=== PATIENT | male | born 1955 | race African-American/Black ===

== ENCOUNTER 2020-06-13 11:26 | Inpatient (IN) | payer MEDICARE, MEDICAID ==
[~2020-06-13] VITALS: Ht 185.4 cm; Wt 103.5 kg
[2020-06-13] MEDS ORDERED: ONDANSETRON HCL 4 MG/2 ML VIAL IV ONE (11:45)
[2020-06-13] MEDS ORDERED: HYDROmorphone HCL 2 MG/ML VL IV ONE (11:45)
[2020-06-13 11:53] LABS: Basophils # (auto) 0.1 10 ^3/uL (0-0.2); Basophils % (auto) 0.8 % (0.0-2.0); Eosinophils # (auto) 0.3 10 ^3/uL (0-0.8); Eosinophils % (auto) 2.7 % (0.0-7.0); Hematocrit 29.7 % (41.0-53.0); Hemoglobin 9.9 g/dL (13.5-17.5); Lymphocytes # (auto) 2.7 10 ^3/uL (0.4-5.4); Lymphocytes % (auto) 26.9 % (10.0-50.0); Mean Corpuscular Hgb Conc. 33.4 g/dL (32.0-36.0); Mean Corpuscular Volume 92.8 fL (80.0-100.0); Monocytes # (auto) 0.7 10 ^3/uL (0-1.3); Monocytes % (auto) 6.9 % (0.0-12.0); Neutrophils # (auto) 6.3 10 ^3/uL (1.6-8.6); Neutrophils % (auto) 62.7 % (37.0-80.0); Nucleated Red Blood Cells % 0.1 %; Platelet Count (auto) 250 10^3/uL (140-450); Red Cell Distribution Width 17.2 % (11.8-14.3)
[2020-06-13 12:14] LABS: Chloride 98 mmol/L (98-107); Sodium 136 mmol/L (136-145)
[2020-06-13 12:24] LABS: Alanine Aminotransferase 8 U/L (16-61); Albumin 2.4 g/dL (3.4-5.0); Alkaline Phosphatase 326 U/L (45-117); Anion Gap 15 (5-15); Aspartate Aminotransferase 8 U/L (15-37); BUN/Creatinine Ratio 2.8; Bilirubin, Total 0.6 mg/dL (0.2-1.0); Blood Urea Nitrogen 39 mg/dL (7-18); Carbon Dioxide 23 mmol/L (21-32); GFR African American 5 mL/min; GFR Non-African American 4 mL/min; Glucose 87 mg/dL (74-106); Magnesium 1.7 mg/dL (1.6-2.6); Total Protein 7.4 g/dL (6.4-8.2)
[2020-06-13 12:58] LABS: Potassium 2.5 mmol/L (3.5-5.1)
[2020-06-13] MEDS ORDERED: POTASSIUM CHL 20MEQ/100ML 100 ML IV ONE (13:45)
[2020-06-13] MEDS ORDERED: hydrALAZINE HCL 20 MG/ML VL IV PRN (14:00)
[2020-06-13] MEDS ORDERED: SODIUM CHLORIDE 0.9% 1,000 ML IV SCH (14:00)
[2020-06-13] MEDS ORDERED: DOCUSATE CALCIUM 240 MG CAP PO PRN (14:00)
[2020-06-13] MEDS ORDERED: ACETAMINOPHEN 500 MG TAB PO PRN (14:00)
[2020-06-13] MEDS ORDERED: POTASSIUM CHL 20 Meq TABLET PO ONE (15:45)
[2020-06-13] MEDS ORDERED: MAGNESIUM SULFATE 1GM/100ML 100 ML IV ONE (15:45)
[2020-06-13] MEDS: HYDROmorphone HCL 2 MG/ML VL IV PRN ×2 (16:10→20:10)
[2020-06-13] MEDS ORDERED: APIX5TAB PO (16:46)
[2020-06-13] MEDS ORDERED: OMEP10CA58 PO (16:46)
[2020-06-13] MEDS ORDERED: CALC0.25 PO (16:46)
[2020-06-13] MEDS ORDERED: MONT10TA34 PO (16:46)
[2020-06-13] MEDS ORDERED: ATOR40TA52 PO (16:46)
[2020-06-13] MEDS ORDERED: LEVO75TA6 PO (16:46)
[2020-06-13] MEDS ORDERED: AMIO200T4 PO (16:46)
[2020-06-13] MEDS ORDERED: OXYC-902 PO (16:46)
[2020-06-13] MEDS ORDERED: CLOP75TA41 PO (16:46)
[2020-06-13] MEDS ORDERED: CINA30TA3 PO (16:46)
[2020-06-13] MEDS: KETOROLAC TROMETH 30 MG/ML 1ML VIAL IV PRN (20:08)
[2020-06-13] MEDS ORDERED: LORazepam 2MG/ML-1ML VIAL IV PRN (22:00)
[2020-06-13 23:42] VITALS: BP 112/68
[2020-06-13 23:43] VITALS: BP 91/60
[2020-06-14] MEDS: HYDROmorphone HCL 2 MG/ML VL IV PRN ×9 (00:19→20:56)
[2020-06-14 05:40] VITALS: BP 94/61
[2020-06-14 05:53] LABS: Basophils # (auto) 0.1 10 ^3/uL (0-0.2); Basophils % (auto) 1.7 % (0.0-2.0); Eosinophils # (auto) 0.3 10 ^3/uL (0-0.8); Eosinophils % (auto) 5.2 % (0.0-7.0); Hematocrit 30.4 % (41.0-53.0); Hemoglobin 10.3 g/dL (13.5-17.5); Lymphocytes % (auto) 30.2 % (10.0-50.0); Mean Corpuscular Hemoglobin 31.4 pg (28.0-32.0); Mean Corpuscular Hgb Conc. 33.8 g/dL (32.0-36.0); Monocytes # (auto) 0.5 10 ^3/uL (0-1.3); Monocytes % (auto) 7.7 % (0.0-12.0); Neutrophils # (auto) 3.6 10 ^3/uL (1.6-8.6); Neutrophils % (auto) 55.2 % (37.0-80.0); Nucleated Red Blood Cells % 0.1 %; Platelet Count (auto) 260 10^3/uL (140-450); Red Blood Cells 3.27 10^6/uL (4.5-5.90); Red Cell Distribution Width 17.8 % (11.8-14.3); White Blood Cell 6.5 10^3/uL (4.4-10.8)
[2020-06-14 06:01] LABS: Potassium 3.6 mmol/L (3.5-5.1)
[2020-06-14 06:13] LABS: Albumin 2.4 g/dL (3.4-5.0); Bilirubin, Total 0.6 mg/dL (0.2-1.0); Calcium 7.7 mg/dL (8.5-10.1); Total Protein 7.2 g/dL (6.4-8.2)
[2020-06-14 08:46] VITALS: BP 97/64
[2020-06-14] MEDS: FAMOTIDINE 20 MG TAB PO SCH (09:38)
[2020-06-14] MEDS: ONDANSETRON HCL 4 MG/2 ML VIAL IV PRN ×2 (09:39→17:34)
[2020-06-14] MEDS ORDERED: ENOXAPARIN SOD 30 MG/0.3 ML SYRINGE SC SCH (10:00)
[2020-06-14] MEDS ORDERED: CLOPIDOGREL BISULFATE 75 MG TAB PO ONE (11:00)
[2020-06-14] MEDS: KETOROLAC TROMETH 30 MG/ML 1ML VIAL IV PRN (11:57)
[2020-06-14] MEDS ORDERED: LORazepam 2MG/ML-1ML VIAL IV PRN (12:00)
[2020-06-14 12:53] VITALS: BP 106/71
[2020-06-14 16:37] VITALS: BP 100/74
[2020-06-14 22:00] VITALS: BP 97/64
[2020-06-14] MEDS: PERITONEAL DIALYSIS 2.5% SOLN 2,000 ML IP SCH (22:00)
[2020-06-14] MEDS: ATORVASTATIN 20 MG TAB PO SCH (23:02)
[2020-06-15] MEDS: HYDROmorphone HCL 2 MG/ML VL IV PRN ×5 (00:08→22:21)
[2020-06-15] MEDS: PERITONEAL DIALYSIS 2.5% SOLN 2,000 ML IP SCH ×6 (02:05→22:21)
[2020-06-15 05:00] VITALS: BP 93/50
[2020-06-15 05:42] LABS: Basophils # (auto) 0.1 10 ^3/uL (0-0.2); Basophils % (auto) 2.4 % (0.0-2.0); Eosinophils # (auto) 0.5 10 ^3/uL (0-0.8); Eosinophils % (auto) 8.3 % (0.0-7.0); Hemoglobin 9.6 g/dL (13.5-17.5); Lymphocytes # (auto) 1.5 10 ^3/uL (0.4-5.4); Lymphocytes % (auto) 26.3 % (10.0-50.0); Mean Corpuscular Hemoglobin 31.5 pg (28.0-32.0); Mean Corpuscular Hgb Conc. 33.3 g/dL (32.0-36.0); Mean Corpuscular Volume 94.7 fL (80.0-100.0); Monocytes # (auto) 0.5 10 ^3/uL (0-1.3); Monocytes % (auto) 8.4 % (0.0-12.0); Neutrophils # (auto) 3.2 10 ^3/uL (1.6-8.6); Neutrophils % (auto) 54.6 % (37.0-80.0); Nucleated Red Blood Cells % 0.1 %; Platelet Count (auto) 245 10^3/uL (140-450); Red Blood Cells 3.06 10^6/uL (4.5-5.90); Red Cell Distribution Width 17.4 % (11.8-14.3); White Blood Cell 5.8 10^3/uL (4.4-10.8)
[2020-06-15 06:06] LABS: Calcium 7.6 mg/dL (8.5-10.1); Potassium 3.3 mmol/L (3.5-5.1)
[2020-06-15 08:15] VITALS: BP 106/68
[2020-06-15 09:00] VITALS: BP_SYST 142; BP_SYST 92; BP_DIAS 59; BP_DIAS 88
[2020-06-15] MEDS: CLOPIDOGREL BISULFATE 75 MG TAB PO SCH (09:55)
[2020-06-15] MEDS: CALCITRIOL 0.25 MCG CAP PO SCH (09:55)
[2020-06-15] MEDS: ENOXAPARIN SOD 120 MG/0.8 ML SYRINGE SC SCH (09:56)
[2020-06-15] MEDS: MUPIROCIN 2% OINT 15gm or 22gm TOP SCH (09:57)
[2020-06-15] MEDS ORDERED: EPOETIN ALFA 10,000 UNIT/1 ML VIAL SC ONE (11:30)
[2020-06-15 13:00] VITALS: BP 95/67
[2020-06-15 14:29] LABS: Calcium 7.3 mg/dL (8.5-10.1); Potassium 3.4 mmol/L (3.5-5.1)
[2020-06-15 14:31] LABS: BUN/Creatinine Ratio 3.1; Phosphorus 4.8 mg/dL (2.5-4.90); Uric Acid 7.4 mg/dL (3.5-7.2)
[2020-06-15 17:00] VITALS: BP 102/68
[2020-06-15] MEDS: ONDANSETRON HCL 4 MG/2 ML VIAL IV PRN (19:21)
[2020-06-15] MEDS: OXYCODONE W/ ACETAMINOPHEN 5/325MG TABLET PO PRN (20:33)
[2020-06-15] MEDS: ATORVASTATIN 20 MG TAB PO SCH (20:33)
[2020-06-15 22:21] VITALS: BP 102/62
[2020-06-16] MEDS: HYDROmorphone HCL 2 MG/ML VL IV PRN ×4 (01:31→10:42)
[2020-06-16] MEDS: PERITONEAL DIALYSIS 2.5% SOLN 2,000 ML IP SCH ×3 (01:32→10:00)
[2020-06-16 05:00] VITALS: BP 109/66
[2020-06-16 06:00] VITALS: BP 100/66
[2020-06-16 06:18] LABS: % Iron Saturation 97.5 % (20-55)
[2020-06-16 06:27] LABS: Hematocrit 26.6 % (41.0-53.0); Hemoglobin 9.1 g/dL (13.5-17.5)
[2020-06-16 08:00] VITALS: BP 112/76
[2020-06-16] MEDS: NITROGLYCERIN 0.4 MG SL TAB SL PRN ×3 (08:05→08:15)
[2020-06-16 09:03] VITALS: BP 98/65
[2020-06-16] MEDS: FAMOTIDINE 20 MG TAB PO SCH (09:10)
[2020-06-16] MEDS: ENOXAPARIN SOD 120 MG/0.8 ML SYRINGE SC SCH (09:11)
[2020-06-16] MEDS: CALCITRIOL 0.25 MCG CAP PO SCH (09:11)
[2020-06-16] MEDS: CLOPIDOGREL BISULFATE 75 MG TAB PO SCH (09:11)
[2020-06-16] MEDS: OXYCODONE W/ ACETAMINOPHEN 5/325MG TABLET PO PRN (09:18)
[2020-06-16] MEDS: MUPIROCIN 2% OINT 15gm or 22gm TOP SCH (09:45)
[2020-06-16 10:40] LABS: Hepatitis A Total Antibody Negative
[2020-06-16 10:53] VITALS: BP 105/61
[2020-06-16 11:22] LABS: Hepatitis B Surface Antigen Negative (Negative)
== END 2020-06-16 12:00 | disposition home or self-care (01) | DRG 557 ==
LOC: EDBD 11:26 → ER 11:26 → TELE 11:27 → TELE-WESTW 20:26
PROVIDERS: ATTEND Specialist
DX: M65.812 Other synovitis and tenosynovitis, left shoulder (principal); N18.6 End stage renal disease; I24.9 Acute ischemic heart disease, unspecified; I12.0 Hypertensive chronic kidney disease with stage 5 chronic kidney disease or end stage renal disease; R07.89 Other chest pain; M19.012 Primary osteoarthritis, left shoulder; E87.6 Hypokalemia; E78.00 Pure hypercholesterolemia, unspecified; D63.1 Anemia in chronic kidney disease; E03.9 Hypothyroidism, unspecified; I25.10 Atherosclerotic heart disease of native coronary artery without angina pectoris; Z99.2 Dependence on renal dialysis; Z95.5 Presence of coronary angioplasty implant and graft; Z90.5 Acquired absence of kidney; Z88.5 Allergy status to narcotic agent; Z85.528 Personal history of other malignant neoplasm of kidney; I25.2 Old myocardial infarction; Z83.3 Family history of diabetes mellitus; G89.29 Other chronic pain
CPT/HCPCS: 36415; 71045; 73030; 73200; 73221; 80048; 80053; 82306; 82728; 83540; 83550; 83735; 83880; 83970; 84100; 84132; 84484; 84550; 85014; 85018; 85025; 86708; 87340; 93005; 96361; 96365; 96375; G0378; J0885; J1885; J2405; J3480

== ENCOUNTER → 2024-06-01 | Emergency (ER) | payer MEDICARE, MEDICAID ==
[~2024-06-01] VITALS: Ht 180.3 cm; Wt 95.4 kg
[~2024-06-01] MED LIST: AMIO200T13 PO; APIX5TAB PO; ATOR40TA52 PO; CALC0.25 PO; CINA30TA14 PO; CLOP75TA70 PO; LEVO75TA6 PO; MONT-8 PO; OMEP10CA5 PO; OXYC30TA PO
--- NOTE | 2024-06-01 09:23 | ED.PDOC ---
HPI Comments 80-year-old male brought in by EMS presents with a chief complaint of chest pain x onset this morning with associated SOB. Patient states that his chest pain is localized to his sternal region, non-radiating, and describes as heavy pressure. Patient was given ASA by the first hospital he went to today and was transferred to our facility. Patient also mentions that he took an ibuprofen this morning around 0600. Patient denies any active pain at time of evaluation. No other symptoms or modifying factors present at this time. Chief Complaint: Chest Pain Time Seen by MD: 09:09 Primary Care Provider: Christopher SEGURA Reviewed Notes: Medications, Allergies Allergies: Coded Allergies: Morphine (Verified Allergy, Severe, 06/13/20) Home Meds Reported Medications Calcitriol (Calcitriol) 0.25 Mcg Cap, 0.25 MCG PO DAILY, MCG 06/13/20 Cinacalcet HCl (Cinacalcet Hydrochloride) 30 Mg Tab, 30 MG PO DAILY, TAB 06/13/20 Atorvastatin Calcium (ATORVASTATIN CALCIUM) 40 Mg Tab, 1 TAB PO QPM, #90 TAB 3 Refills 06/13/20 Amiodarone HCl (Amiodarone HCl) 200 Mg Tab, 200 MG PO DAILY, TAB 06/13/20 Montelukast Sodium (MONTELUKAST SODIUM) 10 Mg Tab, 1 TAB PO DAILY, #30 TAB 5 Refills 06/13/20 Clopidogrel Bisulfate (CLOPIDOGREL) 75 Mg Tab, 75 MG PO DAILY, MG 06/13/20 Oxycodone HCl (Oxycodone Hydrochloride) 30 Mg Tab, 2 TAB PO QID, TAB 06/13/20 Apixaban Base (ELIQUIS) 5 Mg Tab, 5 MG PO BID, TAB 06/13/20 Levothyroxine Sodium (Levothyroxine Sodium) 75 Mcg Tab, 1 TAB PO QAM, #30 TAB 5 Refills 06/13/20 Omeprazole (Omeprazole Dr) 10 Mg Cap, 10 MG PO BID, CAP 06/13/20 Information Source: Patient Mode of Arrival: EMS Severity: Moderate Timing: Hours Duration: Since onset Prehospital treatment: 12 Lead EKG, ASA Location: Substernal Radiation: No Radiation Quality: Pressure, Heavy Onset: At Rest Cardiac Risk Factors: Hyperlipidemia, Diabetes PE Risk Factors: None History of: None Past Medical History PAST MEDICAL HISTORY: DM, ESRD, [place], [place] Surgical History: Hernia Repair, PTCA Family History Family History: Family hx of DM Social History Smoker: Non-Smoker Alcohol: Occasionally Drugs: Denies Drug Use Lives In: Home Constitutional: denies: chills, diaphoresis, fatigue, fever, malaise, sweats, weakness, others EENTM: denies: blurred vision, double vision, ear bleeding, ear discharge, ear drainage, ear pain, ear ringing, eye pain, eye redness, hearing loss, mouth pain, mouth swelling, nasal discharge, nose bleeding, nose congestion, nose pain, photophobia, tearing, throat pain, throat swelling, voice changes, others Respiratory: reports: shortness of breath; denies: cough, hemoptysis, orthopnea, SOB at rest, SOB with excertion, stridor, wheezing, others Cardiovascular: reports: chest pain; denies: dizzy spells, diaphoresis, Dyspnea on exertion, edema, irregular heart beat, left arm pain, lightheadedness, palpitations, PND, syncope, others Gastrointestinal: denies: abdomen distended, abdominal pain, blood streaked bowels, constipated, diarrhea, dysphagia, difficulty swallowing, hematemesis, melena, nausea, poor appetite, poor fluid intake, rectal bleeding, rectal pain, vomiting, others Genitourinary: denies: burning, dysuria, flank pain, frequency, hematuria, incontinence, penile discharge, penile sore, pain, testicle pain, testicle swelling, urgency, others Neurological: denies: dizziness, fainting, headache, left sided numbness, left sided weakness, numbness, paresthesia, pre-existing deficit, right sided numbness, right sided weakness, seizure, speech problems, tingling, tremors, weakness, others Musculoskeletal: denies: back pain, gout, joint pain, joint swelling, muscle pain, muscle stiffness, neck pain, others Integumetry: denies: bruises, change in color, change in hair/nails, dryness, laceration, lesions, lumps, rash, wounds, others Allergic/Immunocompromised: denies: Difficulty Healing, Frequent Infections, Hives, Itching, others Hematologic/Lymphatic: denies: anemia, blood clots, easy bleeding, easy bruising, swollen glands, others Endocrine: denies: excessive hunger, excessive sweating, excessive thirst, excessive urination, flushing, intolerance to cold, intolerance to heat, unexplained weight gain, unexplained weight loss, others Psychiatric: denies: anxiety, bipolar disorder, depression, hopeless, panic disorder, schizophrenia, sleepless, suicidal, others All Other Systems: Reviewed and Negative Physical Exam General Appearance: No Apparent Distress, Normal HEENT: Normal ENT Inspection, Pharynx Normal, TMs Normal Neck: Full Range of Motion, Non-Tender, Normal, Normal Inspection Respiratory: Chest Non-Tender, Lungs Clear, No Accessory Muscle Use, No Respiratory Distress, Normal Breath Sounds Cardiovascular: No Edema, No JVD, No Murmur, No Gallop, Normal Peripheral Pulses, Regular Rate/Rhythm Breast Exam: Deferred Gastrointestinal: No Organomegaly, Non Tender, No Pulsatile Mass, Normal Bowel Sounds, Soft Genitalia: Deferred Pelvic: Deferred Rectal: Deferred Extremities: No calf tenderness, Normal capillary refill, Normal inspection, Normal range of motion, Non-tender, No pedal edema Musculoskeletal : Apperance: Normal Neurologic: Alert, scow captain II-XII nml as Tested, No Motor Deficits, Normal Affect, Normal Mood, No Sensory Deficits Cerebellar Function: Normal Reflexes: Normal Skin: Dry, Normal Color, Warm Lymphatic: No Adenopathy Was a procedure done? Was a procedure done?: No CP Differential Dx Differential Diagnosis: Angina, Heart Failure, [place] Differential Diagnosis: CHF X-Ray, Labs, Meds, VS Vital Signs Date Time Temp Pulse Resp B/P (MAP) Pulse Ox O2 Delivery O2 Flow Rate FiO2 06/01/24 10:01 71 06/01/24 09:35 73 14 98 Room Air* 0 21 06/01/24 09:35 98.0 72 16 135/69 (91) 97 98.0 06/01/24 09:02 77 06/01/24 08:59 98.0 79 18 112/70 (84) 95 Lab Test 06/01/24 09:55 06/01/24 09:07 Range/Units Troponin I High Sensitivity Pending Pending White Blood Count 9.9 4.4-10.8 10^3/uL Red Blood Count 4.44 L 4.5-5.90 10^6/uL Hemoglobin 14.9 13.5-17.5 g/dL Hematocrit 44.3 41.0-53.0 % Mean Corpuscular Volume 99.9 80.0-100.0 fL Mean Corpuscular Hemoglobin 33.7 H 28.0-32.0 pg Mean Corpuscular Hemoglobin Concent 33.7 32.0-36.0 g/dL Red Cell Distribution Width 16.2 H 11.8-14.3 % Platelet Count 244 140-450 10^3/uL Mean Platelet Volume 8.2 6.9-10.8 fL Neutrophils (%) (Auto) 57.8 37.0-80.0 % Lymphocytes (%) (Auto) 29.4 10.0-50.0 % Monocytes (%) (Auto) 8.8 0.0-12.0 % Eosinophils (%) (Auto) 3.7 0.0-7.0 % Basophils (%) (Auto) 0.3 0.0-2.0 % Neutrophils # (Auto) 5.7 1.6-8.6 10 ^3/uL Lymphocytes # (Auto) 2.9 0.4-5.4 10 ^3/uL Monocytes # (Auto) 0.9 0-1.3 10 ^3/uL Eosinophils # (Auto) 0.4 0-0.8 10 ^3/uL Basophils # (Auto) 0 0-0.2 10 ^3/uL Nucleated Red Blood Cells 0.0 % Prothrombin Time 11.6 9.3-11.8 sec Prothrombin Time INR 1.10 0.9-1.15 Activated Partial Thromboplast Time 27.3 24.5-34.5 SEC Sodium Level 140 136-145 mmol/L Potassium Level 4.0 3.5-5.1 mmol/L Chloride Level 111 H 98-107 mmol/L Carbon Dioxide Level 21 20-30 mmol/L Anion Gap 8 5-15 Blood Urea Nitrogen 24 H 9-23 mg/dL Creatinine 1.29 0.700-1.30 mg/dL Glomerular Filtration Rate Calc 57 >90 mL/min BUN/Creatinine Ratio 18.6 10.0-20.0 Serum Glucose 119 H 74-106 mg/dL Calcium Level 11.1 H 8.7-10.4 mg/dL Total Bilirubin 0.3 0.2-1.0 mg/dL Aspartate Amino Transferase (AST) 20 13-40 U/L Alanine Aminotransferase (ALT) 21 7-40 U/L Alkaline Phosphatase 79 46-116 U/L B-Type Natriuretic Peptide Pending Total Protein 5.9 5.7-8.2 g/dL Albumin 3.8 3.2-4.8 g/dL Time of 1ST Reevaluation: 09:39 Reevaluation 1ST: Unchanged Patient Education/Counseling: Diagnosis, Treatment Family Education/Counseling: No Family Present Departure 1 Departure Time of Disposition: 11:08 Impression: Primary Impression: Chest pain Additional Impression: Non-STEMI (non-ST elevated myocardial infarction) Disposition: 09 ADMITTED INPATIENT Admit to: Tele Condition: Guarded Comments The patient was seen in another hospital today transferred to us because of elevated troponin chest pain normal EKG presenting to the emergency room here we repeated the lab the troponin is not back because the machine is currently not functional so we will go ahead and use the previous troponin which was elevated from the other hospital patient index to admit patient to the hospital here today patient already had been given aspirin with food nitro paste to chest wall patient will be admitted Critical Care Note Critical Care Time?: No Stability Stability form required: No Heart Score Heart Score: Heart Score Response (Comments) Value History Moderate Suspicious [address]-Deviation 2 Age >65 2 Risk Factors 1 or 2 risk factors 1 Troponin N/A 0 Total 6 I personally scribed for EDEN FERRER MD ([email or web address]) on 06/01/24 at 09:23. Electronically submitted by Eligio Cardoza ([email or web address]). EDEN FERRER MD Jun 01, 2024 09:23
[2024-06-01 09:35] VITALS: BP 135/69; PULSE 73; RESP 14; TEMP 98; O2SAT 98
--- NOTE | 2024-06-01 09:47 | DVH ---
CHEST RADIOGRAPH Indication:chest pain Technique: Single frontal view of the chest was obtained COMPARISON: CHEST PORTABLE on DOS: 06/14/20, CHEST PORTABLE on DOS: 06/13/20, CHEST PORTABLE on DOS: FINDINGS: Lines and Tubes: None Lungs: Clear Pleura: No effusion. No pneumothorax. Cardiomediastinal contours: Unremarkable Bones: Unremarkable IMPRESSION: No acute disease.
[2024-06-01 10:01] VITALS: PULSE 71
--- NOTE | 2024-06-01 11:52 | ECG ---
[facility] Test Date: 2024-06-01 Test Time: 11:50:36 Pat Name: Fortunato Jackson Department: ER Room: Gender: M Gunner Mate: JANETTE : 1943-10-26 Requested By: EMERGENCY EMERGENCY Order Number: [id number] Reading MD: Jan Keane Measurements Intervals [place] Rate: 76 P: 51 NH: 209 QRS: 44 QRSD: 103 T: 63 QT: 364 QTc: 410 Interpretive Statements Sinus rhythm Low voltage, extremity leads Electronically Signed On 06-04-2024 13:39:07 PDT by Jan Keane Please click the below link to view image of tracing.
--- NOTE | 2024-06-01 15:30 | ECG ---
[facility] Test Date: 2024-06-01 Test Time: 10:01:30 Pat Name: Fortunato Jackson Department: ER Room: Gender: M Brusher Tender: JANETTE : 1943-10-26 Requested By: EMERGENCY EMERGENCY Order Number: [id number] Reading MD: Jan Keane Measurements Intervals [place] Rate: 71 P: 41 MS: 224 QRS: 16 QRSD: 99 T: 59 QT: 380 QTc: 413 Interpretive Statements Sinus rhythm Prolonged MS interval Borderline low voltage, extremity leads Electronically Signed On 06-04-2024 13:29:59 PDT by Jan Keane Please click the below link to view image of tracing.
--- NOTE | 2024-06-02 02:46 | ECG ---
[facility] Test Date: 2024-06-01 Test Time: 10:56:55 Pat Name: Fortunato Jackson Department: ER Room: Gender: M Medical Record Technician: DR CHENG: 1943-10-26 Requested By: EMERGENCY EMERGENCY Order Number: [id number] Reading MD: Jan Keane Measurements Intervals [place] Rate: 69 P: 16 UT: 157 QRS: 122 QRSD: 111 T: -25 QT: 426 QTc: 457 Interpretive Statements Sinus rhythm Lateral infarct, acute Electronically Signed On 06-04-2024 13:34:29 PDT by Jan Keane Please click the below link to view image of tracing.
== END | disposition home or self-care (01) ==
LOC: ER 08:58
DX: I21.4 Non-ST elevation (NSTEMI) myocardial infarction (principal); E11.22 Type 2 diabetes mellitus with diabetic chronic kidney disease; N18.6 End stage renal disease; I25.2 Old myocardial infarction; Z98.890 Other specified postprocedural states; Z88.5 Allergy status to narcotic agent; Z79.01 Long term (current) use of anticoagulants; Z79.02 Long term (current) use of antithrombotics/antiplatelets; Z79.899 Other long term (current) drug therapy
CPT/HCPCS: 36415; 71045; 85025; 93005